=== PATIENT | female | born 1990 | race African-American/Black ===

== ENCOUNTER 2021-09-21 10:41 | Emergency (ER) | payer MEDICARE, MEDICAID ==
[2021-09-21 21:59] LABS: SARS-CoV-2 PCR by NAA Not Detected (NotDetected)
== END 2021-09-21 11:53 | disposition home or self-care (01) ==
LOC: ERS 10:41
DX: J34.89 Other specified disorders of nose and nasal sinuses (principal); J02.9 Acute pharyngitis, unspecified; R51.9 Headache, unspecified; Z20.822 Contact with and (suspected) exposure to COVID-19
CPT/HCPCS: U0003; U0005; 99283